=== PATIENT | female | born 1990 | race Caucasian/White ===

== ENCOUNTER 2017-06-17 10:52 | Inpatient (IN) ==
[2017-06-27] MEDS ORDERED: CITRIC ACID/SODIUM CITRATE 30ml PO ONE (07:30)
[2017-06-27] MEDS ORDERED: CLINDAMYCIN PB 600 MG/50 ML BAG IV ONE (07:30)
[2017-06-27] MEDS ORDERED: FAMOTIDINE PB 20 MG/50 ML BAG IV ONE (07:30)
[2017-06-27 08:06] VITALS: BMI 29.6
[2017-06-27] MEDS: LR 1,000 ML IV SCH ×4 (08:14→13:52)
--- NOTE | 2017-06-27 08:47 | Anesthesia Preoperative Report ---
Anesthesia Epidural/Spinal Rec - Date and Time Date: 06/27/17 Preoperative Diagnosis: Repeat C section Procedure: Plan: Spinal - Vital Signs Vital Signs: Temperature 98.1 F 06/27/17 07:56 Pulse Rate 63 06/27/17 07:56 Respiratory Rate 16 06/27/17 07:56 Blood Pressure 110/63 06/27/17 07:56 /Para: P:1 - Medictaions & Allergies Inpatient Medications: Current Medications Lactated Ringer's (Lactated Ringers) 1,000 mls @ 999 mls/hr IV .Q1H1M GENNARO Last Admin: 06/27/17 08:14 Dose: 999 mls/hr Allergies/Adverse Reactions: Allergies Allergy/AdvReac Type Severity Reaction Status Date / Time Penicillins Allergy Unknown HIVE Verified 03/30/17 13:39 - Home Medications Home Medications: Home Medications Medication Instructions Recorded Confirmed Type Vitamin Tab [Sharif 1 tab PO DAILY 03/30/17 06/26/17 History ] Levothyroxine Sodium [Synthroid] 300 mcg PO DAILY 06/26/17 06/26/17 History - Medical History Gastrointestional: Reports: Other (IBS) Renal/Endocrine: Reports: Thyroid Disease (takes levythyroxine) Other History: Reports: Now - Surgical History Reproductive Surgery/Treatment: Reports: Section Anesthesia Reactions: None Hx Family Anesthesia Reaction: No History of Motion Sickness: No - Social History Smoking Status: Never smoker Second Hand Exposure: No Substance Use Type: does not use Alcohol Intake Frequency: does not drink Hx Chewing Tobacco Use: No - Pertinent Findings Lab Data: CBC and BMP 06/27/17 08:04 - Physical Exam Respiratory Exam: lungs clear Cardiovascular Exam: regular rate and rhythm - Airway Assessment Mallampati Score: II TMD: 3 Fingerbreadths Neck Extension: good Overall Assessment: may be difficult mask vent, may be difficult intubation - ASA ASA Score: 2 - Discussion Discussion: Discussed risks/options/alternatives of anesthesia and questions answered. Patient consents. Nursing pain assessment noted. Anesthesia Discussion: spouse Attestation Statement: Prior to the delivery of any anesthetic medication, I examined the patient, developed the plan, obtained the patient's consent and discussed the risk and benefits of the procedure with the patient/guardian.
[2017-06-27] MEDS ORDERED: ONDANSETRON 4 MG/2 ML INJECTION ONE (09:04)
[2017-06-27] MEDS ORDERED: FentaNYL 100 MCG/2 ML INJECTION ONE (09:06)
[2017-06-27] MEDS ORDERED: SALINE FLUSH 10ml SYRINGE ONE (09:10)
[2017-06-27] MEDS ORDERED: EPHEDRINE 50mg/ml INJECTION ONE (09:11)
[2017-06-27] MEDS ORDERED: OXYTOCIN BOLUS BAG 30 UNIT/500 ML ML IV SCH (10:00)
[2017-06-27] MEDS ORDERED: HYDROMORPHONE PCA 30mg/30ml VIAL IV PRN (10:32)
[2017-06-27] MEDS ORDERED: SIMETHICONE 80 MG CHEWABLE TABLET PO PRN (11:01)
[2017-06-27] MEDS ORDERED: HYDROCORTISONE 2.5% CREAM 30gm RECTALLY PRN (11:01)
[2017-06-27] MEDS ORDERED: CALCIUM CARBONATE Chewable 500mg TABLET PO PRN (11:01)
[2017-06-27] MEDS ORDERED: ACETAMINOPHEN 500 MG TABLET PO PRN (11:01)
[2017-06-27] MEDS ORDERED: OXYTOCIN DRIP 30 UNIT/500 ML ML IV SCH (11:01)
[2017-06-27] MEDS ORDERED: SALINE FLUSH 10ml SYRINGE IV PRN (11:01)
[2017-06-27] MEDS: D5LR 1,000 ML IV SCH ×2 (11:04→21:39)
[2017-06-27] MEDS: IBUPROFEN 800 MG TABLET PO SCH ×2 (13:51→19:37)
[2017-06-27] MEDS: ONDANSETRON 4 MG/2 ML INJECTION IVP PRN ×2 (15:30→19:36)
[2017-06-27] MEDS ORDERED: DiphenhydrAMINE 50 MG/ML INJECTION IVP PRN (15:40)
[2017-06-27] MEDS ORDERED: NALOXONE 2 MG/2 ML INJECTION PFS IVP PRN (15:40)
[2017-06-27] MEDS: SIMETHICONE 80 MG CHEWABLE TABLET PO SCH ×3 (16:38→22:45)
--- NOTE | 2017-06-27 17:20 | OB/GYN Procedure Note ---
PRINCIPAL ANDROID DEVELOPER Postop Note Free Text - Date Date: 06/27/17 - Progress Note Progress Note: Pt reports nausea, but good pain control. AVSS Stable Hgb 10--8.7 Cont to monitor, add scopolamine patch. Q&A
--- NOTE | 2017-06-27 17:22 | Operative Note ---
DATE OF SURGERY 06/27/2017 PREOPERATIVE DIAGNOSIS Term , previous x 1, declines . POSTOPERATIVE DIAGNOSIS Term , previous x 1, declines . PROCEDURES Repeat low transverse section. SURGEON Hellen Cruz MD POTATO INSPECTOR Juan Alberto Ramirez ANESTHESIA Spinal. ANESTHESIOLOGIST Víctor Gordon CRNA EBL 1000 mL DESCRIPTION OF PROCEDURE Ms. Danielle was brought to the OR and given regional analgesia to good effect. She was then placed on the OR table in the supine position with left lateral displacement. A Caldwell catheter was placed to dependent drain. The abdomen was prepped and draped in the usual sterile fashion. A Pfannenstiel skin incision was then made just above the patient's prior incision. This was carried down to fascia. Fascia was incised transversely. Fascia was then tented up. It was bluntly and sharply dissected free of rectus muscles. Rectus muscles were bluntly divided. The peritoneum was tented up and sharply entered. This was then extended vertically. The bladder blade was inserted and the vesicouterine fold of peritoneum was tented up and incised transversely and a bladder flap bluntly created. A low transverse uterine incision was made with a sharp knife. There was copious clear amniotic fluid. There was quite a bit of difficulty in delivering the head. I placed the vertex blade to elevate it out of the pelvis and then shoulders also were quite snug but we were able to successfully deliver the baby in total. Baby was bulb suctioned on the abdomen. Cord was doubly clamped and cut and baby was then given to the pediatric team for care. This was a liveborn female with Apgars of 6/8/9. She weighed 8 pounds 10 ounces. The placenta was then manually removed intact. It had a normal configuration and normal-appearing three-vessel cord. It was sent to Pathology for evaluation. The uterine was exteriorized and swept clear of membranes. I then reapproximated the myometrial incision with a running, locking 0-Monocryl. There was a small area of bleeding at the left edge of this. This was grasped with a right angle clamp and a simple ligature of 3-0 chromic placed around this. Hemostasis was then under excellent control. Uterus , tubes and ovaries were noted to be grossly normal and were returned to the abdominal cavity. We reinspected our incision - it remained hemostatic. We then reapproximated peritoneum with a running, nonlocking 2-0 Vicryl. Fascia was closed with a running, nonlocking 0-Vicryl. Skin edges were reapproximated with a subcuticular style 3-0 undyed Vicryl. Wound was dressed with Steri- Strips and a sterile dressing. Counts were correct postoperatively x 2. The urine remained clear and free-flowing throughout the. Ms. Danielle was then transferred to recovery in stable condition. MOOKIE
[2017-06-27] MEDS ORDERED: SCOPOLAMINE 1.5 MG PATCH TD SCH (17:30)
--- NOTE | 2017-06-27 19:18 | Anesthesia Postoperative Note ---
- Date and Time Date: 06/27/17 Time: 15:53 - Status Patient Participated in Evaluation: Patient Participated in Person Vital Signs: Temperature 97.7 F 06/27/17 18:00 Pulse Rate 63 06/27/17 18:00 Respiratory Rate 16 06/27/17 18:00 Blood Pressure 111/66 06/27/17 18:00 Pulse Oximetry 98 06/27/17 18:00 Respiratory Function: Airway Patent Cardiovascular Function: Regular Pulse EKG: Sinus Rhythm Mental Status: Alert and Oriented Pain Intensity: 3 Hydration: Taking PO Fluids Complications During Recover: None Apparent - Follow-Up Instructions Instructions: Per Surgeon
[2017-06-27] MEDS: DiphenhydrAMINE 25 MG CAPSULE PO PRN (21:38)
[2017-06-28] MEDS: HYDROCODONE/APAP 5mg/325mg TABLET PO PRN ×5 (01:44→22:29)
[2017-06-28] MEDS: IBUPROFEN 800 MG TABLET PO SCH ×3 (05:28→20:43)
[2017-06-28] MEDS: LEVOTHYROXINE 150 MCG TABLET PO SCH (07:23)
--- NOTE | 2017-06-28 11:11 | OB/GYN Progress Note ---
OB-PP Progress Note - General PPD1 POD:: POD1 Maternal Group B Strep: Positive Maternal blood type: A+ Maternal Rubella Status: Immune - Subjective Date: 06/28/17 Lochia: Minimal Pain: controlled Voiding: voiding Nausea or Vomiting Present: No - Objective Vital Signs: Last Vital Signs Temp 98.1 F 06/28/17 05:00 Pulse 66 06/28/17 05:00 Resp 17 06/28/17 05:00 BP 98/53 06/28/17 05:00 Pulse Ox 95 06/28/17 05:00 General: alert and oriented Incision: dry, dressed Extremities: non-tender Laboratory: Laboratory Results - last 24 hr 06/27/17 16:02 WBC 11.1 H RBC 3.02 L Hgb 8.7 L D Hct 27.2 L D MCV 90.1 MCH 28.8 MCHC 32.0 RDW Std Deviation 47.3 Plt Count 186 MPV 10.3 - Assessment Assessment: SP, Repeat C/S - Plan Plan: routine care
[2017-06-28] MEDS: DOCUSATE CALCIUM 240 MG CAPSULE PO SCH (12:21)
[2017-06-28] MEDS: SIMETHICONE 80 MG CHEWABLE TABLET PO SCH ×4 (12:22→20:43)
[2017-06-28] MEDS: D5LR 1,000 ML IV SCH ×2 (12:23→20:39)
[2017-06-28] MEDS: DiphenhydrAMINE 25 MG CAPSULE PO PRN (20:39)
[2017-06-29] MEDS: IBUPROFEN 800 MG TABLET PO SCH (06:07)
[2017-06-29] MEDS: HYDROCODONE/APAP 5mg/325mg TABLET PO PRN (06:08)
[2017-06-29 07:38] VITALS: BP 118/68; PULSE 65; RESP 18; TEMP 98.1; O2SAT 95
[2017-06-29] MEDS: DOCUSATE CALCIUM 240 MG CAPSULE PO SCH (08:59)
[2017-06-29] MEDS: LEVOTHYROXINE 150 MCG TABLET PO SCH (09:00)
[2017-06-29] MEDS ORDERED: IRON POLYSACCHARIDE COMPLEX 150 MG CAPSULE PO SCH (09:00)
--- NOTE | 2017-06-29 09:04 | OB/GYN Progress Note ---
OB-PP Progress Note - General PPD2 Maternal Group B Strep: Positive Maternal blood type: A+ Maternal Rubella Status: Immune - Subjective Date: 06/29/17 Lochia: Minimal Pain: other (The [place] isn't working as well as she would like, and she wants to try something different.) Voiding: voiding - Objective Vital Signs: Last Vital Signs Temp 98.1 F 06/29/17 07:37 Pulse 65 06/29/17 07:37 Resp 18 06/29/17 07:37 BP 118/68 06/29/17 07:37 Pulse Ox 95 06/29/17 07:37 Urine Output: good General: alert and oriented Abdomen: fundus firm, non-tender, soft, non-distended Incision: clean, dry, intact Extremities: non-tender - Assessment Assessment: Repeat C/S, Anemia, Hypothyroid - Plan Plan: routine care, iron, discharge home, continue PNV, other (Switch to Percocet)
[2017-06-29] MEDS: Oxycodone/Acetaminophen 5/325 1 TAB PO PRN ×2 (10:38→14:48)
[2017-06-30] MEDS ORDERED: SCOPOLAMINE PATCH REMOVAL TD SCH (17:30)
== END 2017-06-29 15:08 | disposition home or self-care (01) | DRG 766 ==
LOC: MC 06-27 07:19
PROVIDERS: ADMIT Obstetrics & Gynecology; ATTEND Obstetrics & Gynecology